=== PATIENT | female | born 1970 | race Asian ===

== ENCOUNTER → 2018-08-12 | Outpatient (CLI) | payer BC | END | disposition home or self-care (01) | LOC: RAD 10:08 | PROVIDERS: ATTEND Internal Medicine Endocrinology, Diabetes & Metabolism | DX: R51 Headache (principal); E55.9 Vitamin D deficiency, unspecified | CPT/HCPCS: 70544; 70553; 82306 ==

== ENCOUNTER → 2020-06-23 | Outpatient (CLI) | payer BC | END | disposition home or self-care (01) | LOC: RAD 07:53 | PROVIDERS: ATTEND Internal Medicine Endocrinology, Diabetes & Metabolism | DX: M54.9 Dorsalgia, unspecified (principal) | CPT/HCPCS: 72100 ==

== ENCOUNTER → 2020-10-09 | Outpatient (CLI) | payer BC ==
[2020-10-09 08:11] LABS: BASOPHILS % 2.2 % (0.0-2.0); EOSINOPHILS % 4.4 % (0.0-5.0); HEMATOCRIT. 39.6 % (36.0-48.0); HEMOGLOBIN. 13.3 g/dL (12.0-16.0); LYMPHOCYTES % 33.9 % (20.0-50.0); MEAN CORPUSCULAR HEMOGLOBIN 30.9 pg (28.0-32.0); MEAN PLATELET VOLUME 10.1 fl (7.4-10.4); NEUTROPHILS % 53.5 % (40.0-76.0); PLATELET 194 x1000/uL (130-400); RED CELL DISTRIBUTION WIDTH 13.4 % (11.6-14.6)
[2020-10-09 08:28] LABS: CHLORIDE 106 mEq/L (98-107)
[2020-10-09 08:39] LABS: LDL CHOLESTEROL 33 mg/dL (5-100)
[2020-10-09 08:40] LABS: HDL CHOLESTEROL 105 mg/dL (40-59)
[2020-10-09 08:42] LABS: T4 FREE 1.21 ng/dL (0.76-1.46)
[2020-10-10 10:08] LABS: FOLICLE STIMULATING HORMONE 10.5 mIU/mL (.); PROLACTIN 6.5 ng/mL (4.8-23.3)
[2020-10-11 09:08] LABS: VITAMIN D 25-OH 35.4 ng/mL (30.0-100.0)
[2020-10-12 09:12] LABS: TESTOSTERONE FREE 1.8 pg/mL (0.0-4.2)
== END | disposition home or self-care (01) ==
LOC: LAB 07:49
PROVIDERS: ATTEND Internal Medicine Endocrinology, Diabetes & Metabolism
DX: E55.9 Vitamin D deficiency, unspecified (principal); L65.9 Nonscarring hair loss, unspecified
CPT/HCPCS: 36415; 80053; 80061; 82306; 82533; 82670; 83001; 83002; 83036; 84146; 84402; 84403; 84439; 85025

== ENCOUNTER → 2022-05-25 | Outpatient (CLI) | payer BC ==
[2022-05-25 15:43] LABS: BASOPHILS % 1.2 % (0.0-2.0); EOSINOPHILS % 3.3 % (0.0-5.0); HEMATOCRIT. 40.1 % (36.0-48.0); HEMOGLOBIN. 13.2 g/dL (12.0-16.0); LYMPHOCYTES % 25.2 % (20.0-50.0); MEAN CORPUSCULAR HEMOGLOBIN 29.9 pg (28.0-32.0); MEAN CORPUSCULAR VOLUME 90.8 fL (81.0-99.0); MEAN PLATELET VOLUME 9.5 fl (7.4-10.4); MONOCYTES % 6.6 % (2.0-8.0); NEUTROPHILS % 63.7 % (40.0-76.0); PLATELET 202 x1000/uL (130-400); RED BLOOD CELL COUNT 4.42 mill/uL (4.2-5.4); RED CELL DISTRIBUTION WIDTH 13.8 % (11.6-14.6)
[2022-05-25 16:02] LABS: CHLORIDE 106 mEq/L (98-107)
[2022-05-25 16:15] LABS: HDL CHOLESTEROL 103 mg/dL (40-59); LDL CHOLESTEROL 28 mg/dL (5-100); T4 FREE 1.14 ng/dL (0.76-1.46)
[2022-05-25 16:35] LABS: VITAMIN B12 SERUM 459 pg/mL (211-911)
[2022-05-29 09:10] LABS: ANTI-NUCLEAR ANTIBODIES DIRECT Negative (Negative); RF PROFILE < 10.0 IU/mL (<14.0)
[2022-05-31 09:09] LABS: CCP IgG/IgA PROFILE 4 units (0-19)
[2022-05-31 10:10] LABS: METHYLMALONIC ACID 173 nmol/L (0-378)
== END | disposition home or self-care (01) ==
LOC: MRI 15:03
PROVIDERS: ATTEND Internal Medicine Endocrinology, Diabetes & Metabolism
DX: S46.811A Strain of other muscles, fascia and tendons at shoulder and upper arm level, right arm, initial encounter (principal); M77.11 Lateral epicondylitis, right elbow; R73.9 Hyperglycemia, unspecified; R51.9 Headache, unspecified; M79.602 Pain in left arm; X58.XXXA Exposure to other specified factors, initial encounter; Y93.89 Activity, other specified; Y92.89 Other specified places as the place of occurrence of the external cause; Y99.8 Other external cause status
CPT/HCPCS: 36415; 73218; 73220; 80053; 80061; 82607; 83921; 84439; 84443; 85025; 85651; 86038; 86200; 86431

== ENCOUNTER → 2022-07-31 | Outpatient (CLI) | payer BC ==
[2022-07-31 10:17] LABS: HEMATOCRIT. 40.1 % (36.0-48.0); HEMOGLOBIN. 13.5 g/dL (12.0-16.0); MEAN CORPUSCULAR HEMOGLOBIN 30.4 pg (28.0-32.0); MEAN CORPUSCULAR VOLUME 90.3 fL (81.0-99.0); MEAN PLATELET VOLUME 8.9 fl (7.4-10.4); PLATELET 213 x1000/uL (130-400); RED BLOOD CELL COUNT 4.44 mill/uL (4.2-5.4); RED CELL DISTRIBUTION WIDTH 13.8 % (11.6-14.6)
[2022-07-31 10:34] LABS: CLARITY URINE CLEAR (CLEAR); COLOR URINE YELLOW (YELLOW); KETONES URINE NEGATIVE (NEGATIVE); LEUKOCYTE ESTERASE URINE NEGATIVE (NEGATIVE); NITRITE URINE NEGATIVE (NEGATIVE); OCCULT BLOOD URINE NEGATIVE (NEGATIVE); PROTEIN URINE NEGATIVE (NEGATIVE); SPECIFIC GRAVITY URINE 1.023 (1.005-1.030); UROBILINOGEN URINE 0.2 E.U./dL (0.2-1.0)
[2022-07-31 10:35] LABS: PARTIAL THROMBOPLASTIN TIME 28.8 sec (23.4-31.0); PROTHROMBIN TIME 10.4 sec (9.6-11.0)
[2022-07-31 10:36] LABS: CHLORIDE 104 mEq/L (98-107)
[2022-07-31 11:18] LABS: PLATELET ESTIMATE NORMAL
== END | disposition home or self-care (01) ==
LOC: LAB 09:55
PROVIDERS: ATTEND Internal Medicine Endocrinology, Diabetes & Metabolism
DX: Z01.812 Encounter for preprocedural laboratory examination (principal)
CPT/HCPCS: 36415; 80053; 81003; 85025

== ENCOUNTER → 2022-08-10 | Day surgery (SDC) | payer BC ==
[~2022-08-10] VITALS: Ht 157.5 cm; Wt 56.2 kg
[~2022-08-10] MED LIST: ACET-2708 PO; ACETAMINOPHEN 325MG TABLET PO PRN; BUPIVACAINE HCL/PF 0.5% (5MG/ML) 10ML ONE; CEFAZOLIN SODIUM 1000MG/VIAL ONE; CHOL2000 PO; FENTANYL CITRATE/PF 50MCG/ML 2ML VIAL ONE; GLYCOPYRROLATE 0.2 MG/ML 2ML VIAL ONE; HYDROCODONE/ACETAMINOPHEN 5/325MG TABLET PO PRN; HYDROMORPHONE HCL/PF 2MG/ML CPJ IV PRN; LABETALOL 5MG/ML SYR 20 MG/4 ML SYRINGE IV PRN; LACTATED RINGERS 1,000 ML IV SCH; LIDOCAINE HCL 1% 20ML VIAL (Pyxis) INJ ONE; LIDOCAINE HCL 1% 50ML VIAL (10MG/ML) ONE; LIDOCAINE HCL/EPINEPHRINE 1%-EPI 1:100,000 20 ML VIAL ONE; MIDAZOLAM HCL 2 MG/2 ML VIAL ONE; MORPHINE SULFATE 2 MG/ML CPJ (NOT FOR IM USE) IV PRN; MULT-1116 PO; NALOXONE HCL 0.4MG/ML VIAL IV PRN; ONDANSETRON HCL 4MG/2ML INJ IV PRN; ONDANSETRON HCL 4MG/2ML INJ ONE; POLYMYXIN B SULFATE 500000 UNITS/VIAL ONE; PROPOFOL 200MG/20ML VIAL IV ONE; ROCURONIUM BROMIDE 10MG/ML VIAL 5ML IV ONE; SUCCINYLCHOLINE CHLORIDE 200MG/10ML IV ONE; TRIAMCINOLONE ACETONIDE 40MG/ML 1ML VIAL ONE
[2022-08-10 08:13] LABS: UCG SCREEN NEGATIVE
[2022-08-10] MEDS: MEPERIDINE HCL/PF 25MG/ML CPJ IV PRN ×2 (13:04→13:30)
[2022-08-10 13:53] VITALS: BP 120/69
== END | disposition home or self-care (01) ==
LOC: OR 07:31
DX: M77.11 Lateral epicondylitis, right elbow (principal); D64.9 Anemia, unspecified; Z79.899 Other long term (current) drug therapy; Z98.890 Other specified postprocedural states; Z88.2 Allergy status to sulfonamides; Z88.1 Allergy status to other antibiotic agents; Z20.822 Contact with and (suspected) exposure to COVID-19
CPT/HCPCS: 24359; 81025; 87426; C9803; J0330; J0690; J1170; J2175; J2250; J2405; J2704; J3010; J3301; J3490; A4565

== ENCOUNTER → 2024-07-10 | Outpatient (CLI) | payer BC ==
[~2024-07-10] MED LIST changes: -ACETAMINOPHEN 325MG TABLET PO PRN; -BUPIVACAINE HCL/PF 0.5% (5MG/ML) 10ML ONE; -CEFAZOLIN SODIUM 1000MG/VIAL ONE; -FENTANYL CITRATE/PF 50MCG/ML 2ML VIAL ONE; -GLYCOPYRROLATE 0.2 MG/ML 2ML VIAL ONE; -HYDROCODONE/ACETAMINOPHEN 5/325MG TABLET PO PRN; -HYDROMORPHONE HCL/PF 2MG/ML CPJ IV PRN; -LABETALOL 5MG/ML SYR 20 MG/4 ML SYRINGE IV PRN; -LACTATED RINGERS 1,000 ML IV SCH; -LIDOCAINE HCL 1% 20ML VIAL (Pyxis) INJ ONE; -LIDOCAINE HCL 1% 50ML VIAL (10MG/ML) ONE; -LIDOCAINE HCL/EPINEPHRINE 1%-EPI 1:100,000 20 ML VIAL ONE; -MIDAZOLAM HCL 2 MG/2 ML VIAL ONE; -MORPHINE SULFATE 2 MG/ML CPJ (NOT FOR IM USE) IV PRN; -NALOXONE HCL 0.4MG/ML VIAL IV PRN; -ONDANSETRON HCL 4MG/2ML INJ IV PRN; -ONDANSETRON HCL 4MG/2ML INJ ONE; -POLYMYXIN B SULFATE 500000 UNITS/VIAL ONE; -PROPOFOL 200MG/20ML VIAL IV ONE; -ROCURONIUM BROMIDE 10MG/ML VIAL 5ML IV ONE; -SUCCINYLCHOLINE CHLORIDE 200MG/10ML IV ONE; -TRIAMCINOLONE ACETONIDE 40MG/ML 1ML VIAL ONE
[2024-07-10 13:39] LABS: BASOPHILS % 3.2 % (0.0-2.0); EOSINOPHILS % 3.1 % (0.0-5.0); HEMATOCRIT. 38.5 % (36.0-48.0); HEMOGLOBIN. 12.8 g/dL (12.0-16.0); LYMPHOCYTES % 31.4 % (20.0-50.0); MEAN CORPUSCULAR HEMOGLOBIN 30.1 pg (28.0-32.0); MEAN CORPUSCULAR HGB CONC 33.2 g/dL (31.0-37.0); MEAN CORPUSCULAR VOLUME 90.5 fL (81.0-99.0); MEAN PLATELET VOLUME 8.4 fl (7.4-10.4); MONOCYTES % 6.9 % (2.0-8.0); NEUTROPHILS % 55.4 % (40.0-76.0); PLATELET 197 x1000/uL (130-400); RED BLOOD CELL COUNT 4.26 mill/uL (4.2-5.4); RED CELL DISTRIBUTION WIDTH 13.7 % (11.6-14.6); WHITE BLOOD COUNT 4.9 x1000/uL (4.5-11.0)
[2024-07-10 13:46] LABS: CARBON DIOXIDE 27 mEq/L (21-32); CHLORIDE 104 mEq/L (98-107); POTASSIUM 3.8 mEq/L (3.5-5.1); SODIUM 136 mEq/L (136-145)
[2024-07-10 13:47] LABS: CALCIUM 9.1 mg/dL (8.7-10.4)
[2024-07-10 13:52] LABS: CREATININE 0.9 mg/dL (0.6-1.0); GLUCOSE 91 mg/dL (70-105); UREA NITROGEN BLOOD 11 mg/dL (9-23)
[2024-07-10 13:53] LABS: ALANINE AMINOTRANSFERASE 11 IU/L (10-49); C REACTIVE PROTEIN QUANT 0.4 mg/L (0.0-3.0)
[2024-07-10 13:54] LABS: ALBUMIN 4.5 g/dL (3.2-4.8); ASPARTATE AMINOTRANSFERASE 19 IU/L (<34); BILIRUBIN TOTAL 0.5 mg/dL (0.1-1.0); CREATINE KINASE 76 IU/L (34-145); PROTEIN TOTAL 7.1 g/dL (6.0-8.3)
[2024-07-10 14:02] LABS: FOLIC ACID (FOLATE) SERUM > 20.00 ng/mL (>5.38); VITAMIN B12 SERUM 1095 pg/mL (211-911)
[2024-07-10 15:11] LABS: ERYTHROCYTE SEDIMENTATION RATE 9 mm/hr (0-30)
[2024-07-13 09:07] LABS: RF PROFILE < 10.0 IU/mL (<14.0)
[2024-07-13 13:11] LABS: ANTI-NUCLEAR ANTIBODIES DIRECT Negative (Negative)
[2024-07-13 14:12] LABS: CCP IgG/IgA PROFILE 2 units (0-19)
[2024-07-15 13:10] LABS: METHYLMALONIC ACID 156 nmol/L (0-378)
== END | disposition home or self-care (01) ==
LOC: LAB 13:14
PROVIDERS: ATTEND Internal Medicine Endocrinology, Diabetes & Metabolism
DX: D64.9 Anemia, unspecified (principal); M79.10 Myalgia, unspecified site
CPT/HCPCS: 36415; 80053; 82550; 82607; 82746; 83921; 85025; 85651; 86038; 86140; 86200; 86431

== ENCOUNTER → 2025-06-23 | Outpatient (CLI) | payer BC ==
[2025-06-23 06:57] LABS: BASOPHILS % 2.4 % (0.0-2.0); EOSINOPHILS % 4.4 % (0.0-5.0); HEMATOCRIT. 38.3 % (36.0-48.0); HEMOGLOBIN. 12.9 g/dL (12.0-16.0); LYMPHOCYTES % 29.1 % (20.0-50.0); MEAN PLATELET VOLUME 8.7 fl (7.4-10.4); MONOCYTES % 7.1 % (2.0-8.0); NEUTROPHILS % 57.0 % (40.0-76.0); PLATELET 195 x1000/uL (130-400); RED BLOOD CELL COUNT 4.25 mill/uL (4.2-5.4); RED CELL DISTRIBUTION WIDTH 13.4 % (11.6-14.6)
[2025-06-23 07:19] LABS: UREA NITROGEN BLOOD 15 mg/dL (9-23)
[2025-06-23 07:20] LABS: C REACTIVE PROTEIN HIGH SENS 0.56 mg/l (<1.00)
[2025-06-23 07:22] LABS: CREATININE 0.9 mg/dL (0.6-1.0); TRIGLYCERIDE 55 mg/dL (0-150)
[2025-06-23 07:23] LABS: LDL CHOLESTEROL 38 mg/dL (5-100); T4 FREE 1.55 ng/dL (0.89-1.76)
[2025-06-23 07:24] LABS: ASPARTATE AMINOTRANSFERASE 20 IU/L (<34)
[2025-06-23 07:25] LABS: BILIRUBIN TOTAL 0.5 mg/dL (0.1-1.0); PROTEIN TOTAL 7.2 g/dL (6.0-8.3)
== END | disposition home or self-care (01) ==
LOC: LAB 06:29
PROVIDERS: ATTEND Internal Medicine Endocrinology, Diabetes & Metabolism
DX: E55.9 Vitamin D deficiency, unspecified (principal); R73.9 Hyperglycemia, unspecified; L30.9 Dermatitis, unspecified
CPT/HCPCS: 36415; 80053; 80061; 82306; 82550; 83036; 84439; 84443; 85025; 86141